=== PATIENT | male | born 1955 | race Caucasian/White ===

== ENCOUNTER 2019-05-10 06:24 | Day surgery (SDC) | payer BC ==
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
[2019-05-10] VITALS (7 sets, daily range): BP systolic 106–122; BP diastolic 64–73; PULSE 72–85; RESP 13–27; Ht 160 cm; Wt 87.5 kg
[~2019-05-10] VITALS: Ht 160 cm; Wt 87.5 kg
[~2019-05-10 06:24] MED LIST: ASPI-535 PO; CAPT50TA3 PO; GLIP5TAB13 PO; METF-849 PO; PIOG30TA19 PO
[2019-05-10] MEDS ORDERED: MOXIFLOXACIN 0.5% 3 ML OPH OPER SCH (07:00)
[2019-05-10] MEDS ORDERED: SOD CHLORIDE 0.9% 1,000 ML IV SCH (07:00)
[2019-05-10] MEDS ORDERED: CYCLOPENTOLATE/PHENYLEPH 2 ML OPH OPER SCH (07:00)
[2019-05-10] MEDS ORDERED: TROPICAMIDE 1% 15 ML OPH OPER SCH (07:00)
[2019-05-10] MEDS ORDERED: DICLOFENAC 0.1% 2.5 ML OPH OPER SCH (07:00)
[2019-05-10] MEDS ORDERED: GABA300C16 PO (07:55)
[2019-05-10] MEDS ORDERED: LOSA50TA14 PO (07:55)
[2019-05-10] MEDS ORDERED: AZEL6DRO2 BOTH EYES (07:55)
[2019-05-10] MEDS ORDERED: LORA0.5T PO (07:55)
--- NOTE | 2019-05-10 07:57 | PREAC ---
Date/Time of Note Date/Time of Note DATE: 05/10/19 TIME: 07:55 Anesthesia Eval and Record Evaluation Time Pre-Procedure Interview DATE: 05/10/19 TIME: 07:55 Age 64 Sex male NPO: 8 hrs Preoperative diagnosis Left Eye Cataract Planned procedure Left Eye Cataract Extraction and IOL implant Past Medical History Past Medical History: Includes Cardio: HTN, Dyslipidemia Endo: Diabetes Neuro: Other (Left Eye Cataract) Surgery & Anesthesia Issues No known issue Meds Anticoagulation: No Beta Navarro within 24 hr: No Reason Beta Navarro not given: Pt. not on B-Navarro Reported Medications Azelastine Hcl* (Azelastine Hcl*) 0.05%-6 Ml Opht Drops, 1 DROP BOTH EYES BID, #1 EA 05/10/19 Gabapentin* (Gabapentin*) 300 Mg Capsule, 300 MG PO DAILY, #60 CAP 05/10/19 Losartan Potassium* (Losartan Potassium*) 50 Mg Tablet, 50 MG PO DAILY, TAB 05/10/19 Lorazepam* (Lorazepam*) 0.5 Mg Tablet, 0.5 MG PO HS PRN for ANXIETY, TAB 05/10/19 Glipizide* (Glipizide*) 5 Mg Tablet, 5 MG PO DAILY 03/24/12 Metformin* (Glucophage*) 500 Mg Tab, 500 MG PO DAILY 03/24/12 Discontinued Reported Medications Captopril* (Captopril*) 50 Mg Tablet, 50 MG PO DAILY 03/24/12 Pioglitazone Hcl* (Actos*) 30 Mg Tablet, 30 MG PO DAILY 03/24/12 Aspirin Ec (Aspir 81) 81 Mg Tablet.dr, 81 MG PO DAILY 03/24/12 Current Medications Diclofenac Sodium (Voltaren 0.1%) 1 drop Q5 MIN X 3 OPER Last administered on 05/10/19at 07:21; Admin Dose 1 DROP; Start 05/10/19 at 07:00 Tropicamide (Mydriacyl 1%) 1 drop Q5 MIN X3 OPER Last administered on 05/10/19at 07:21; Admin Dose 1 DROP; Start 05/10/19 at 07:00 Moxifloxacin HCl (Vigamox) 1 drop Q5 MIN X 3 OPER Last administered on 05/10/19at 07:22; Admin Dose 1 DROP; Start 05/10/19 at 07:00 Cyclopentolate/ Phenylephrine (Cyclomydril Oph 2 ml) 1 drop Q5 MIN X 3 OPER Last administered on 05/10/19at 07:21; Admin Dose 1 DROP; Start 05/10/19 at 07:00 Sodium Chloride 1,000 ml @ 25 mls/hr Q24H IV Last administered on 05/10/19at 07:22; Admin Dose 25 MLS/HR; Start 05/10/19 at 07:00 Meds reviewed: Yes Allergies Coded Allergies: No Known Drug Allergies (Verified Allergy, Unknown, 05/05/19) Allergies Reviewed: Yes Labs/Studies Labs Reviewed: Reviewed by anesthesiologist test: N/A Studies: ECG (n/a), CXR (n/a) Pre-procedure Exam Airway: Adequate mouth opening, Adequate thyromental dist Mallampati: Mallampati II Teeth: Normal Lung: Normal Heart: Normal ASA Physical Status ASA physical status: 3 Emergency: None Planned Anesthetic General/MAC: MAC Planned Pain Management Parenteral pain med Pre-operative Attestations Prior to commencing anesthesia and surgery, the patient was re-evaluated, there was verification of: *The patient's identity *The results of appropriate recent lab work and preoperative vital signs *The above evaluation not changing prior to induction *Anesthetic plan, risk benefits, alternative and complications discussed with patient/family; questions answered; patient/family understands, accepts and wishes to proceed. ZEUS CHAHAL MD May 10, 2019 07:57
[2019-05-10] MEDS ORDERED: ONDANSETRON 4 MG INJ IV PRN (08:00)
[2019-05-10] MEDS ORDERED: OXYCODONE/ACETAMINOPHEN (5/325) TAB PO PRN (08:00)
[2019-05-10] MEDS ORDERED: LABETALOL HCL 20MG INJ IV PRN (08:00)
[2019-05-10] MEDS ORDERED: EPHEDrine 25 MG/5 ML SYG IV PRN (08:00)
[2019-05-10] MEDS ORDERED: ONDANSETRON 4 MG INJ ONE ×2 (08:00)
[2019-05-10] MEDS ORDERED: METOCLOPRAMIDE 10 MG INJ ONE ×2 (08:00)
[2019-05-10] MEDS ORDERED: FENTAnyl 50 MCG/ML VIAL IV PRN (08:00)
[2019-05-10] MEDS ORDERED: HYDROmorphONE 1 MG/5 ML IV SYRINGE IV PRN (08:00)
[2019-05-10] MEDS ORDERED: MIDAZOLAM 1 MG/ML 2 ML INJ ONE (08:00)
[2019-05-10] MEDS ORDERED: hydrALAzine 20 MG INJ IV PRN (08:00)
[2019-05-10] MEDS ORDERED: PROPOFOL 20 ML ONE (08:00)
[2019-05-10] MEDS ORDERED: GENTAMICIN 80 MG INJ ONE (08:18)
[2019-05-10] MEDS ORDERED: TETRACAINE 0.5% 4 ML OPH ONE (08:18)
[2019-05-10] MEDS ORDERED: DEXAMETHASONE 4 MG/ML 1 ML INJ ONE (08:18)
[2019-05-10] MEDS ORDERED: EPINEPHrine 1 MG INJ ONE (08:18)
[2019-05-10] MEDS ORDERED: CARBACHOL 0.01% 1.5 ML OPH INJ ONE (08:18)
[2019-05-10] MEDS ORDERED: LIDOCAINE 4% (MPF) 5 ML INJ ONE (08:18)
[2019-05-10] MEDS ORDERED: NA HYALURONATE/CHONDROITIN 0.5 ML SYG OP ONE (09:09)
--- NOTE | 2019-05-10 09:24 | SIPON ---
Date/Time of Note Date/Time of Note DATE: 05/10/19 TIME: 09:23 Operative Report Preoperative Diagnosis cortical & posterior subcapsular cataract os Postoperative Diagnosis same Operation/Procedure Performed cataract extraction with lens implant os Surgeon emma thomas doctor assistant none Anesthesia: MAC Estimated blood loss: none Transfusion Required none Specimen none Grafts/Implants posterior chamber lens implant Complications none EMMA THOMAS MD May 10, 2019 09:24
--- NOTE | 2019-05-10 09:31 | PAC ---
Date/Time of Note Date/Time of Note DATE: 05/10/19 TIME: 09:31 Post-Anesthesia Notes Post-Anesthesia Note Last documented vital signs Vital Signs Date Temp Pulse Resp B/P (MAP) Pulse Ox O2 O2 Flow FiO2 Time Delivery Rate 05/10/19 98.2 85 19 116/69 98 Room Air 09:23 (85) Activity: WNL Respiratory function: WNL Cardiovascular function: WNL Mental status: Baseline Pain reasonably controlled: Yes Hydration appropriate: Yes Nausea/Vomiting absent: Yes ZEUS CHAHAL MD May 10, 2019 09:31
--- NOTE | 2019-05-10 10:57 | OPR ---
DATE OF OPERATION: 05/10/2019 PREOPERATIVE DIAGNOSIS: Anterior cortical and posterior subcapsular cataract, left eye. POSTOPERATIVE DIAGNOSIS: Anterior cortical and posterior subcapsular cataract, left eye. OPERATION PERFORMED: Cataract extraction with lens implant, left eye. SURGEON: Emma Stone MD ANESTHESIA: Christiano Lopez MD OPERATION: Phacoemulsification with posterior chamber intraocular lens implant, left eye. PROCEDURE: The patient was brought to the operating room and placed on the table with an IV in place and the patient attached to an classroom monitor. Oxygen was given via face mask. After some intravenous sedation was administered, local anesthesia was given using Xylocaine 2% with epinephrine, mixed with Marcaine 0.5%. This was given in a lid block and retrobulbar injection. The patient was then prepped and draped in the usual sterile manner. A wire lid speculum was inserted between the lids of the left eye. A Superblade was used to enter the anterior chamber at the corneoscleral limbus at the 10:30 o'clock position. A separate incision was made using a 3.0-mm keratome which entered the corneoscleral junction at the 12 o'clock position. Through this 3-mm opening, an irrigating cystotome was introduced into the anterior chamber. The chamber was filled with Viscoat and an anterior capsulotomy was performed. Balanced salt solution was then used for hydrodissection of the lens. A phacoemulsification handpiece was then brought into the field and introduced into the anterior chamber. The lens nucleus was emulsified using a deep groove and cracking the nucleus into quadrants. Following this, each quadrant was aspirated and emulsified at the pupillary margin. During this portion of the surgery, it was noted that there was a break in the posterior capsule and some formed vitreous was present at the lip of the wound. A very limited anterior vitrectomy was performed using mechanical vitrectomy instrumentation and then the balance of the lens cortical material was aspirated. It was noted that there was sufficient capsular support for a posterior chamber intraocular lens and therefore additional Provisc was injected to maintain the anterior and posterior chamber and then a 17.0 diopter posterior chamber intraocular lens ([employer] Model LI61AO) was inserted with the lens haptics placed anterior to the capsular fold. The lens remained stable despite exterior pressure on the globe. One 10-0 nylon suture was placed across the wound. The Provisc was aspirated from the anterior chamber and the suture was tied. Miostat was instilled to constrict the pupil. After the suture was tied the ends were cut short and the knot was buried on the scleral side. Following this, injection of an air bubble was placed into the anterior chamber to keep the lens implant stable. 0.50 mL of dexamethasone and 0.50 mL of Ancef were injected into the subtenon space inferiorly. The speculum was then removed, Vigamox drops placed on the surface of the eye and the eye was patched. The patient left the operating room in satisfactory condition. Dictated By: EMMA NOLAND/WENDI Conf#: [id number] DID#: [id number] MTDD
== END 2019-05-10 11:41 | disposition home or self-care (01) ==
LOC: SDS 06:24
PROVIDERS: ATTEND Ophthalmology
DX: H25.042 Posterior subcapsular polar age-related cataract, left eye (principal); I10 Essential (primary) hypertension; E11.9 Type 2 diabetes mellitus without complications; Z79.4 Long term (current) use of insulin; Z79.84 Long term (current) use of oral hypoglycemic drugs; F32.9 Major depressive disorder, single episode, unspecified
CPT/HCPCS: 66984; 82962; J0171; J1580; J2250; J2405; J2765; V2632; Z7512; Z7610; J1100

== ENCOUNTER 2019-07-27 06:33 | Day surgery (SDC) | payer BC ==
[2019-07-26 15:16] VITALS: BMI 35.1
[~2019-07-27] VITALS: Ht 172.7 cm; Wt 90.0 kg
[2019-07-27] VITALS (12 sets, daily range): BP systolic 140–169; BP diastolic 85–98; PULSE 40–76; RESP 10–27; Ht 172.7 cm; Wt 90.0 kg
[~2019-07-27 06:33] MED LIST changes: -ASPI-535 PO; +ASPI81TA52 PO; +ATOR10TA65 PO; +AZEL6DRO2 BOTH EYES; -CAPT50TA3 PO; +GABA300C16 PO; +GLIP10TA14 PO; +INSU100I33 SC; +LORA0.5T PO; +LOSA50TA14 PO; +METF100010 PO; -PIOG30TA19 PO
[2019-07-27] MEDS ORDERED: CARBACHOL 0.01% 1.5 ML OPH INJ ONE (06:43)
[2019-07-27] MEDS ORDERED: LIDOCAINE 4% (MPF) 5 ML INJ ONE (06:43)
[2019-07-27] MEDS ORDERED: GENTAMICIN 80 MG INJ ONE (06:43)
[2019-07-27] MEDS ORDERED: DEXAMETHASONE 4 MG/ML 1 ML INJ ONE (06:43)
[2019-07-27] MEDS ORDERED: CEFAZOLIN 1 GM INJ ONE (06:43)
[2019-07-27] MEDS ORDERED: EPINEPHrine 1 MG INJ ONE ×2 (06:44)
[2019-07-27] MEDS ORDERED: DICLOFENAC 0.1% 2.5 ML OPH OPER SCH (07:30)
[2019-07-27] MEDS ORDERED: SOD CHLORIDE 0.9% 1,000 ML IV SCH (07:30)
[2019-07-27] MEDS ORDERED: CYCLOPENTOLATE/PHENYLEPH 2 ML OPH OPER SCH (07:30)
[2019-07-27] MEDS ORDERED: MOXIFLOXACIN 0.5% 3 ML OPH OPER SCH (07:30)
[2019-07-27] MEDS ORDERED: TROPICAMIDE 1% 15 ML OPH OPER SCH (07:30)
[2019-07-27] MEDS ORDERED: DEXAMETHASONE 4 MG/ML 1 ML INJ INJ ONE (08:25)
[2019-07-27] MEDS ORDERED: LIDOCAINE 1% (MPF) 5 ML VIAL INJ ONE (08:25)
[2019-07-27] MEDS ORDERED: CARBACHOL 0.01% 1.5 ML OPH INJ RIGHT EYE ONE (08:25)
[2019-07-27] MEDS ORDERED: LIDOCAINE 4% (MPF) 5 ML INJ INJ ONE (08:25)
[2019-07-27] MEDS ORDERED: CEFAZOLIN 1 GM INJ INJ ONE (08:25)
[2019-07-27] MEDS ORDERED: PROPOFOL 20 ML ONE (08:32)
[2019-07-27] MEDS ORDERED: LIDOCAINE 2% (SDV) 5 ML INJ ONE (09:15)
[2019-07-27] MEDS ORDERED: HYDROmorphONE 1 MG/5 ML IV SYRINGE IV ONE (09:27)
[2019-07-27] MEDS ORDERED: ALBUTEROL 0.083% (NEB) 2.5 MG/3 ML AMP HHN PRN (09:30)
[2019-07-27] MEDS ORDERED: MEPERIDINE 25 MG INJ IV PRN (09:30)
[2019-07-27] MEDS ORDERED: KETOROLAC 30 MG INJ IV PRN (09:30)
[2019-07-27] MEDS ORDERED: ONDANSETRON 4 MG INJ IV PRN (09:30)
[2019-07-27] MEDS ORDERED: hydrALAzine 20 MG INJ IV PRN (09:30)
[2019-07-27] MEDS ORDERED: EPHEDrine 25 MG/5 ML SYG IV PRN (09:30)
[2019-07-27] MEDS ORDERED: FENTAnyl 50 MCG/ML VIAL IV PRN ×3 (09:30)
[2019-07-27] MEDS ORDERED: OXYCODONE/ACETAMINOPHEN (5/325) TAB PO PRN ×2 (09:30)
[2019-07-27] MEDS ORDERED: LABETALOL HCL 20MG INJ IV PRN (09:30)
[2019-07-27] MEDS ORDERED: HYDROmorphONE 1 MG/5 ML IV SYRINGE IV PRN ×3 (09:30)
[2019-07-27] MEDS ORDERED: DIPHENHYDRAMINE 50 MG INJ IV PRN (09:30)
== END 2019-07-27 10:55 | disposition home or self-care (01) ==
LOC: SDS 06:33
PROVIDERS: ATTEND Ophthalmology
DX: H25.11 Age-related nuclear cataract, right eye (principal); E11.9 Type 2 diabetes mellitus without complications; I10 Essential (primary) hypertension; Z79.82 Long term (current) use of aspirin; Z79.84 Long term (current) use of oral hypoglycemic drugs; Z79.4 Long term (current) use of insulin
CPT/HCPCS: 66984; 82962; J0171; J0690; J1100; J1170; J1580; J7030; V2632; Z7512; Z7610